=== PATIENT | male | born 1985 | race Caucasian/White ===

== ENCOUNTER 2019-11-06 10:05 | Emergency (ER) | payer OTHER ==
[~2019-11-06] VITALS: Ht 170.2 cm; Wt 96.7 kg
--- NOTE | 2019-11-06 10:35 | NUR ---
MED SPEC: PT AMBULATORY TO ROOM FROM LOBBY
--- NOTE | 2019-11-06 10:44 | NUR ---
FIRST CONTACT WITH PT. PT C/O LEFT CALF PAIN RELATED TO SPRINTING LAST NIGHT. PT'S AOX4. RESPS EVEN AND UNLABORED. PA AT BEDSIDE TO EVALUATE AT THIS TIME.
--- NOTE | 2019-11-06 11:01 | NUR ---
EMT AT BEDSIDE FOR SPLINT AT THIS TIME.
--- NOTE | 2019-11-06 11:20 | NUR ---
TASK RN. INTO ASSIST WITH PT DISCHARGE. ED TECHS REMAIN AT BEDSIDE FOR SPLINT PLACEMENT. CMS INTACT. PEDAL PULSE NORMAL AND STRONG. PT AND SPOUSE GIVEN DISCHARGE INSTRUCTIONS, VERBALIZED UNDERSTANDING, ALL QUESTIONS ADDRESSED, HANDOUTS IN HAND. PRIMARY RN ALEX TO COMPLETE DISCHARGE OF PT ONCE SPLINT APPLIED. PT GIVEN INSTRUCTIONS ON PROPER CRUTCH USE AND DEMONSTRATION, VERBALIZED UNDERSTANDING, STATES "I'VE USED CRUTCHES BEFORE, I'M ALL SET."
[2019-11-06 11:23] VITALS: BP 147/95
== END 2019-11-06 11:37 | disposition home or self-care (01) ==
LOC: ED 11:20
DX: S86.812A Strain of other muscle(s) and tendon(s) at lower leg level, left leg, initial encounter (principal); E80.6 Other disorders of bilirubin metabolism; R74.0 Nonspecific elevation of levels of transaminase and lactic acid dehydrogenase [LDH]; X58.XXXA Exposure to other specified factors, initial encounter; Y93.89 Activity, other specified; Y92.89 Other specified places as the place of occurrence of the external cause; Y99.8 Other external cause status
CPT/HCPCS: 29515; 99283